=== PATIENT | male | born 1945 | race Caucasian/White ===

== ENCOUNTER 2023-12-07 11:32 | Inpatient (IN) | payer MEDICARE, OTHER ==
[~2023-12-07] VITALS: Ht 180.3 cm; Wt 85.4 kg
[2023-12-10] VITALS (15 sets, daily range): BP systolic 135–152; BP diastolic 54–71; PULSE 58–70; TEMP 97.4–98.2
[2023-12-10] MEDS ORDERED: Meclizine 25 MG TAB PO SCH (05:00)
[2023-12-10] MEDS ORDERED: LR 1,000 ML IV SCH ×2 (05:00→09:00)
[2023-12-10] MEDS ORDERED: Gabapentin 100 MG CAP PO SCH (06:30)
[2023-12-10] MEDS ORDERED: Celecoxib 200 MG CAP PO SCH (06:30)
[2023-12-10] MEDS ORDERED: Acetaminophen 500 MG TAB PO SCH ×2 (06:30→12:45)
[2023-12-10 06:33] LABS: HEMATOCRIT 42.3 % (42.0-52.0); HEMOGLOBIN 13.6 g/dl (13.5-18.0); MEAN CELL VOLUME 90 fl (80.0-100.0); MEAN CORPUSCULAR HEMOGLOBIN 29 pg (27-31); MEAN CORPUSCULAR HGB CONC 32 g/dl (33.0-37.0); MEAN PLATELET VOLUME 10.4 fl (7.4-10.4); PLATELET COUNT 157 K/mm3 (130-400); RED BLOOD COUNT 4.72 M/mm3 (4.20-5.60); REDCELL DISTRIBUTION WIDTH-CV 14.5 % (11.5-14.5)
[2023-12-10] MEDS ORDERED: fentaNYL 50 MCG/ML 2 ML VIAL ONE (06:34)
[2023-12-10] MEDS ORDERED: Lidocaine PF 2% (20 MG/ML) 5 ML VIAL ONE (06:34)
[2023-12-10] MEDS ORDERED: dexAMETHasone 10 MG/ML VIAL ONE (06:34)
[2023-12-10] MEDS ORDERED: Rocuronium 50 MG/5 ML Multi-Dose VIAL ONE ×2 (06:35→08:04)
[2023-12-10] MEDS ORDERED: Midazolam 2 MG/2 ML VIAL ONE (06:35)
[2023-12-10 06:48] LABS: CALCIUM 8.7 mg/dL (8.4-10.2); CREATININE, serum 1.47 mg/dL (0.72-1.25); POTASSIUM 4.4 mEq/L (3.5-4.5)
[2023-12-10] MEDS ORDERED: NORCO 325 MG-51 TAB PO (07:28)
[2023-12-10] MEDS ORDERED: Ondansetron 4 MG/2 ML VIAL IV PRN ×2 (07:30→08:15)
[2023-12-10] MEDS ORDERED: Naloxone 0.4 MG/ML VIAL IV PRN (07:30)
[2023-12-10] MEDS ORDERED: Morphine 4 MG/ML VIAL IV PRN (07:30)
[2023-12-10] MEDS ORDERED: oxyCODONE 5 MG TAB PO PRN (07:30)
[2023-12-10] MEDS ORDERED: ePHEDrine 50 MG/ML VIAL ONE (07:45)
[2023-12-10] MEDS ORDERED: Topical Skin Adhesive 1 EACH (1 ML) TOP ONE (07:48)
[2023-12-10] MEDS ORDERED: fentaNYL 50 MCG/ML 1 ML SYRINGE/VIAL [PACU/SDC ONLY] IV PRN (08:15)
[2023-12-10] MEDS ORDERED: HYDROmorphone 1 MG/1 ML SYRINGE [PACU/SDC ONLY] IV PRN (08:15)
[2023-12-10] MEDS ORDERED: hydrALAZINE 20 MG/ML 1 ML VIAL IV PRN (08:15)
[2023-12-10] MEDS ORDERED: Meperidine 50 MG/ML 1 ML VIAL IV PRN (08:15)
--- NOTE | 2023-12-10 08:18 | NUR ---
MEDICATION LIST IN COMPUTER NOT UPDATED BEFORE ACKNOWLEDGED BY PHYSICIAN. PAPER LIST PLACED ON CHART WITH MEDS, DOSES AND LAST TAKEN. NO HOME MEDICATIONS WERE TAKEN BY PATIENT TODAY.
[2023-12-10] MEDS ORDERED: LR 1,000 ML IV ONE (09:12)
--- NOTE | 2023-12-10 10:10 | NUR ---
Pt arrived form PACU. A&Ox4. Drowsy. VSS. S1S2. Clear lungs. ABD round, soft, non-tender with audible bowel sounds. Palpable pulses in all extremities. Minimal sensation in BLE and RUE. Movement in all extremities. Brizuela in place, clear, yellow urine. IV in L wrist with LR at 75cc/hr. Pt tolerating Ice chips. x7 lap sites WA with skin glue. Pt denies pain, n/v, headache. No further needs at this time. Family and patient oriented to room. Call light in reach and bed alarm on.
--- NOTE | 2023-12-10 10:45 | NUR ---
Pt staing discomfort across lower ABD. Pressure. Pt states not painful, tolerable. Rates 5/10. Denies need for pain med or warm blanket at this time.
[2023-12-10] MEDS ORDERED: Gabapentin 100 MG CAP PO ONE (11:24)
--- NOTE | 2023-12-10 12:48 | NUR ---
0555 Patient ambulatory to bay with steady gait, breathing even and unlabored. Pt is alert and oriented, accompanied by his and daughter. Consents reviewed and signed by the patient. IV established. Blood specimen obtained with IV start and taken to lab. LR infusion via dial a flow at KVO. Call light in reach. Warm blanket provided.
--- NOTE | 2023-12-10 16:46 | NUR ---
Pt ambulated to chair. WILY Medrano noticed blood spot on blanket. Upon assessment lower lap site by umbilicus was bleeding. Cleaned Pt and placed gauze bandage over lap site. Pt ambulated to chair with minimal assist. No further needs. Call light in reach and chair alarm on.
--- NOTE | 2023-12-10 20:35 | NUR ---
Patient assessed at this time, see shift assessment, A/O, with IV infusing well on left wrist LR infusing at 75cc/hr, with arias to dependent drainage, spoken to Dr. Chance and made him aware that patient requesting his blood sugar cheched and it was 336, received an order for moderate sliding scale and consult hospitalist, family at bedside, queries answered, denies further needs, call light and personal items within reach, will continue to monitor.
--- NOTE | 2023-12-10 20:57 | NUR ---
Informed Estela, the CHUCK BONER about the consult.
[2023-12-10] MEDS ORDERED: Insulin Lispro (HumaLOG) SQ SCH (21:00)
[2023-12-10] MEDS ORDERED: Glucagon 1 MG VIAL IM PRN (21:15)
[2023-12-10] MEDS ORDERED: Dextrose 50% Water 25 GM/50 ML SYRINGE IV PRN (21:15)
[2023-12-10] MEDS ORDERED: Dextrose (Glucose) 15 GM (4 x 3.75 GM) Chewable TABLET PACK PO PRN (21:15)
--- NOTE | 2023-12-10 23:30 | NUR ---
Estela, the STOPPER MAKER came in and see the patient.
[2023-12-11] VITALS: BP 149/51; PULSE 62; TEMP 97.5
[2023-12-11] MEDS ORDERED: Nebivolol 20 MG **** subs to Bisoprolol 20 MG PO SCH ×3 (00:15→09:00)
[2023-12-11] MEDS ORDERED: Atorvastatin 40 MG TAB PO SCH (00:15)
[2023-12-11] MEDS ORDERED: Insulin Glargine-ygfn (Lantus) SQ SCH (00:15)
[2023-12-11] MEDS ORDERED: Amiodarone 200 MG TAB PO SCH (00:15)
[2023-12-11] MEDS ORDERED: Bisoprolol 5 MG TAB PO SCH ×2 (00:15→01:15)
[2023-12-11 01:25] VITALS: BP_SYST 149
[2023-12-11 03:18] VITALS: BP 150/92; PULSE 58; TEMP 97.7
[2023-12-11 04:17] VITALS: BP_SYST 150
--- NOTE | 2023-12-11 04:43 | NUR ---
Called Estela, the SUPERVISOR QUALITY CONTROL and made her aware that patient's blood sugar is 214, received an order to treat the patient basing it off to the sliding scale.
[2023-12-11] MEDS ORDERED: Insulin Lispro (HumaLOG) SQ ONE (04:45)
--- NOTE | 2023-12-11 06:45 | NUR ---
Pt laying in bed. Denies needs at this time. Revied incision sites with Counter Professional RN. Call light in reach.
[2023-12-11 06:53] LABS: BASO % 0.2 % (0.0-2.0); EOS % 0.1 % (0.0-4.0); GRAN # 15.5 K/mm3 (1.4-6.5); GRAN % 84.4 % (42.2-75.2); HEMATOCRIT 38.7 % (42.0-52.0); HEMOGLOBIN 12.7 g/dl (13.5-18.0); LYMPH # 1.6 K/mm3 (1.2-3.4); LYMPH % 8.9 % (20.0-51.0); MEAN CELL VOLUME 90 fl (80.0-100.0); MEAN CORPUSCULAR HEMOGLOBIN 29 pg (27-31); MEAN CORPUSCULAR HGB CONC 33 g/dl (33.0-37.0); MEAN PLATELET VOLUME 11.2 fl (7.4-10.4); MONO # 1.1 K/mm3 (0.1-0.6); MONO % 5.9 % (1.7-9.3); PLATELET COUNT 160 K/mm3 (130-400); RED BLOOD COUNT 4.32 M/mm3 (4.20-5.60); REDCELL DISTRIBUTION WIDTH-CV 14.3 % (11.5-14.5)
[2023-12-11 07:01] LABS: CALCIUM 8.8 mg/dL (8.4-10.2); CREATININE, serum 2.63 mg/dL (0.72-1.25); POTASSIUM 4.9 mEq/L (3.5-4.5)
[2023-12-11 07:26] VITALS: BP 137/90; PULSE 63; TEMP 98.3
--- NOTE | 2023-12-11 08:12 | NUR ---
Pt sitting up in bed. Finished with breakfast. A&Ox4. VSS. S1S2. Clear lungs on RA. ABD is round, osft, non-tender with audible bowel sounds. Palpable pulses in all extremities with 4/5 strength. Pt denies pain, n/v, headache, dizziness. x7 lap sites WA. 6 - open to air, 7th with gauze bandage - CDI. Administered AM meds and answered Pt questions. No further needs. Call light in reach.
[2023-12-11] MEDS ORDERED: Empagliflozin 10 MG TAB PO SCH (09:00)
[2023-12-11] MEDS ORDERED: Spironolactone 12.5 MG TAB PO SCH (09:00)
[2023-12-11] MEDS ORDERED: Furosemide 40 MG TAB PO SCH (09:00)
[2023-12-11 09:27] VITALS: BP_SYST 137
--- NOTE | 2023-12-11 10:00 | NUR ---
Pt ambulated in hallway about 200 feet. Pt utilized gait belt and walker with standby assist for IV pole. Pt sitting up in chair with family at bedside. Call light in reach.
--- NOTE | 2023-12-11 12:27 | NUR ---
Educated Pt and family on D/C instructions and information. Answered Pt questions. D/C'ed Pt IV from L forearm. Pressure bandage applied. No further needs. Pt transported to vehicle via by WILY Yu.
--- NOTE | 2023-12-11 12:54 | NUR ---
Data: Patient accepted Vocational Rehab Consultant visit offered during Vocational Rehab Consultant rounds. Patient hopes to discharge today. and adult Daughter were visiting. All were waiting for the Doctor to visit. Assessment: Patient hopes to discharge today. Plan of Care: Vocational Rehab Consultant provided prayer. Patient's family thanked Vocational Rehab Consultant for the prayer. Chaplains will remain available as needed/requested while Patient is admitted to this hospital.
== END 2023-12-11 12:55 | disposition home or self-care (01) | DRG 657 ==
LOC: INPTSU 12-10 05:34 → SURG 12-10 07:30
PROVIDERS: ADMIT Urology
PROC: 8E0W4CZ Robotic Assisted Procedure of Trunk Region, Percutaneous Endoscopic Approach (ICD-10-PCS; 2023-12-10)
PROC: 0TT04ZZ Resection of Right Kidney, Percutaneous Endoscopic Approach (ICD-10-PCS; principal; 2023-12-10 07:30)
DX: C64.1 Malignant neoplasm of right kidney, except renal pelvis (principal); I13.0 Hypertensive heart and chronic kidney disease with heart failure and stage 1 through stage 4 chronic kidney disease, or unspecified chronic kidney disease; I50.22 Chronic systolic (congestive) heart failure; I42.8 Other cardiomyopathies; N13.8 Other obstructive and reflux uropathy; I47.29 Other ventricular tachycardia; E11.22 Type 2 diabetes mellitus with diabetic chronic kidney disease; N18.32 Chronic kidney disease, stage 3b; E78.5 Hyperlipidemia, unspecified; I25.10 Atherosclerotic heart disease of native coronary artery without angina pectoris; G47.33 Obstructive sleep apnea (adult) (pediatric); E11.40 Type 2 diabetes mellitus with diabetic neuropathy, unspecified; D64.9 Anemia, unspecified; N28.9 Disorder of kidney and ureter, unspecified; I34.0 Nonrheumatic mitral (valve) insufficiency; N40.1 Benign prostatic hyperplasia with lower urinary tract symptoms; E03.9 Hypothyroidism, unspecified; Z79.82 Long term (current) use of aspirin; Z79.899 Other long term (current) drug therapy; Z79.890 Hormone replacement therapy; Z79.4 Long term (current) use of insulin; Z88.0 Allergy status to penicillin
CPT/HCPCS: A4314; A9270; A9284; J0690; J1100; J1815; J2250; J2704; J2795; J3010; J7120

== ENCOUNTER 2024-02-18 12:59 | Day surgery (SDC) | payer MEDICARE, OTHER ==
[2024-02-18] VITALS (10 sets, daily range): BP systolic 126–153; BP diastolic 51–92; PULSE 55–83; TEMP 97–98.2
[~2024-02-18] VITALS: Ht 180.3 cm; Wt 84.7 kg
[~2024-02-18 12:59] MED LIST: LR 1,000 ML IV SCH; NORCO 325 MG-51 TAB PO
[2024-02-18 14:03] LABS: BASO % 0.2 % (0.0-2.0); EOS # 0.2 K/mm3 (0.0-0.7); EOS % 1.9 % (0.0-4.0); GRAN # 7.5 K/mm3 (1.4-6.5); GRAN % 59.8 % (42.2-75.2); HEMOGLOBIN 11.2 g/dl (13.5-18.0); LYMPH # 3.7 K/mm3 (1.2-3.4); LYMPH % 29.9 % (20.0-51.0); MEAN CELL VOLUME 89 fl (80.0-100.0); MEAN CORPUSCULAR HEMOGLOBIN 29 pg (27-31); MEAN CORPUSCULAR HGB CONC 33 g/dl (33.0-37.0); MONO % 7.9 % (1.7-9.3); PLATELET COUNT 146 K/mm3 (130-400); RED BLOOD COUNT 3.87 M/mm3 (4.20-5.60); REDCELL DISTRIBUTION WIDTH-CV 14.8 % (11.5-14.5)
[2024-02-18 14:05] LABS: HEMATOCRIT 34.5 % (42.0-52.0)
[2024-02-18 14:16] LABS: CREATININE, serum 2.37 mg/dL (0.72-1.25); POTASSIUM 4.7 mEq/L (3.5-4.5)
[2024-02-18] MEDS ORDERED: JARDIANCE10 PO (15:15)
[2024-02-18] MEDS ORDERED: ASPIRIN 81M81 MG/TA2 PO (15:16)
[2024-02-18] MEDS ORDERED: LIPITOR 40MG TA40 MG PO (15:16)
[2024-02-18] MEDS ORDERED: BYSTOLIC20 MG PO (15:17)
[2024-02-18] MEDS ORDERED: ENTRESTO 97 MG1 EACH PO (15:17)
[2024-02-18] MEDS ORDERED: PACERONE200 MG PO (15:18)
[2024-02-18] MEDS ORDERED: XULTOPHY 100 UNI3 ML SQ (15:20)
[2024-02-18] MEDS ORDERED: HUMALOG TE100 UNIT/1 SQ (15:25)
[2024-02-18] MEDS ORDERED: Morphine 2 MG/1 ML VIAL [PACU/SDC ONLY] IV PRN (15:30)
[2024-02-18] MEDS ORDERED: Meperidine 50 MG/ML 1 ML VIAL IV PRN (15:30)
[2024-02-18] MEDS ORDERED: Ondansetron 4 MG/2 ML VIAL IV PRN ×4 (15:30→22:00)
[2024-02-18] MEDS ORDERED: HYDROmorphone 1 MG/1 ML SYRINGE [PACU/SDC ONLY] IV PRN (15:30)
[2024-02-18] MEDS ORDERED: fentaNYL 50 MCG/ML 2 ML VIAL ONE (15:38)
[2024-02-18] MEDS ORDERED: Midazolam 2 MG/2 ML VIAL ONE (15:38)
[2024-02-18] MEDS ORDERED: NS 10 ML IV ONE (15:39)
[2024-02-18] MEDS ORDERED: Lidocaine PF 2% (20 MG/ML) 5 ML VIAL ONE (15:41)
[2024-02-18] MEDS ORDERED: SYNTHROID0.1 MG/TAB PO (15:43)
[2024-02-18] MEDS ORDERED: NS Irrig Soln 3000 ML SOLN IR PRN ×3 (16:30→22:00)
[2024-02-18] MEDS ORDERED: Morphine 4 MG/ML VIAL IV PRN ×3 (16:30→22:00)
[2024-02-18] MEDS ORDERED: Acetaminophen 325 MG TAB PO PRN ×3 (16:30→21:45)
[2024-02-18] MEDS ORDERED: Hyoscyamine 0.125 MG Sublingual TAB SL PRN ×3 (16:30→22:00)
[2024-02-18] MEDS ORDERED: Magnes Hydrox (MOM) 80 MG/ML 30 ML CUP PO PRN ×3 (16:30→22:00)
[2024-02-18] MEDS ORDERED: 1/2 NS & 20 mEq KCl 1,000 ML IV SCH ×2 (16:30→18:45)
[2024-02-18] MEDS ORDERED: Lidocaine 2% (20 MG/ML) 20 ML UROJET UR ONE (16:58)
--- NOTE | 2024-02-18 18:38 | NUR ---
PT TO ROOM 329 PER BED WITH REPORT FROM [facility] PACU @1800. VSS, CBI CREDIT [id number]. RUNNING PINK TO BAG. IV TO LFA. FAMILY AT BEDSIDE. PT IS A/O X4, ADA DIET WITH BG OF 106 ON TRANSFER.
[2024-02-18] MEDS ORDERED: Nystatin 100,000 Units/GM Ointment 15 GM TUBE TP SCH (21:00)
[2024-02-18] MEDS ORDERED: Amiodarone 200 MG TAB PO SCH ×3 (21:00→22:16)
[2024-02-18] MEDS ORDERED: Atorvastatin 40 MG TAB PO SCH ×2 (21:00→22:00)
[2024-02-18] MEDS ORDERED: Docusate Sodium 100 MG CAP PO SCH (21:00)
[2024-02-18] MEDS ORDERED: Bisoprolol 5 MG TAB PO SCH ×2 (21:00→22:00)
--- NOTE | 2024-02-18 21:40 | NUR ---
Dr. Chance contacted to clarify holding or continuing home meds. Notified he wants to continue all home meds except to hold his aspirin and entersto. Also recieved orders to consult hospitalist and check BMP in AM.
[2024-02-18] MEDS ORDERED: PACERONE100 MG PO (22:15)
[2024-02-18] MEDS ORDERED: Dextrose (Glucose) 15 GM (4 x 3.75 GM) Chewable TABLET PACK PO PRN (22:45)
[2024-02-18] MEDS ORDERED: Dextrose 50% Water 25 GM/50 ML SYRINGE IV PRN (22:45)
[2024-02-18] MEDS ORDERED: Glucagon 1 MG VIAL IM PRN (22:45)
--- NOTE | 2024-02-18 22:45 | NUR ---
Patient resting in bed. Rates his pain at 7/10, prn tylenol given. Needs met. CBI running without complications, urine granger red. Assessment complete. IV in left AC flushes easily without complications. Call light and personal items in reach. Bed in low position and bed alarm on.
[2024-02-19] VITALS (13 sets, daily range): BP systolic 131–151; BP diastolic 60–78; PULSE 60–69; TEMP 98–99.1
--- NOTE | 2024-02-19 01:56 | NUR ---
PT DECLINED TO WEAR HOSPITAL CPAP. PT ON 1L NC
--- NOTE | 2024-02-19 06:00 | NUR ---
Patient resting in bed. Denies any pain or needs at this time. CBI in place with urine draining granger red. No events overnight. Call light and personal items in reach. Bed in low position and bed alarm on.
[2024-02-19 06:48] LABS: CALCIUM 8.1 mg/dL (8.4-10.2); CREATININE, serum 2.24 mg/dL (0.72-1.25); POTASSIUM 4.6 mEq/L (3.5-4.5)
[2024-02-19] MEDS ORDERED: Insulin Lispro (HumaLOG) SQ SCH (08:00)
--- NOTE | 2024-02-19 08:15 | NUR ---
pt a&ox4 sitting up in bed with breakfast, family at bedside. pt denies pain. vss. meds given and assessment complete. CBI clamped by Dr Chance. blood glucose WNL, no insulin required. fluids infusing into right forearm IV at 75ml/hr. pt denies needs at this time. call light in reach. fall precautions in place.
[2024-02-19] MEDS ORDERED: Empagliflozin 10 MG TAB PO SCH ×2 (09:00)
[2024-02-19] MEDS ORDERED: Nystatin 100,000 Units/GM Ointment 15 GM TUBE TP SCH (09:00)
[2024-02-19] MEDS ORDERED: Nebivolol 20 MG **** subs to Bisoprolol 20 MG PO SCH (09:00)
--- NOTE | 2024-02-19 09:36 | NUR ---
arias discontinued without difficulty. instructed pt on 6 cup routine, pt and understands. pt denies pain.
--- NOTE | 2024-02-19 10:03 | NUR ---
SW met with patient to complete intake and discuss discharge planning, patient's ([phone]) was present and permitted by patient to remain in room during this intake process. Patient reports that he lives with in [facility], his PCP is Dr. Suh with [facility] and his pharmacy of choice is [facility]. Patient communicated that he is independent with ADLs and current DMEs include: insulin pen, CPAP, glucose meter- no additional DMEs reported at this time. No DPOA on file, patient was provided information on documenation available with hospital, both patient and decline. Informed SW that they are working on completing with legal. Discharge Plan: home with
--- NOTE | 2024-02-19 13:16 | NUR ---
Data: Patient, , and Daughter accepted spiritual care visit offered during Orthotist/Prosthetist rounds. Life review. Assessment: Patient and desired prayer; are grateful for the care and healing that has taken place. Plan of Care: Orthotist/Prosthetist provided supportive listening and prayer. Patient and family thanked Orthotist/Prosthetist for the visit. Chaplains will remain available as needed/requested while Patient is admitted to this hospital.
--- NOTE | 2024-02-19 17:18 | NUR ---
pt tolerated 6 cup, pt still experiencing dark blood in urine but no clots are present. pt denies difficulty emptying and denies pain as well.
--- NOTE | 2024-02-19 19:20 | NUR ---
Patient resting in chair with and daughter at bedside. Denies any pain or needs at this time. Assessment complete. IV in right forearm flushes easily without complications. Patient is voiding dark red urine without complaints of pain or difficulity. Urine does not have any clots or sediment. Call light and personal items in reach. Bed in low position.
--- NOTE | 2024-02-19 22:00 | NUR ---
Patient ambulated in hallways without complications. Steady on feet.
--- NOTE | 2024-02-19 23:30 | NUR ---
Spoke with Hospitalist Estela about patients ordered IVF however was told patient was INT and was not connected to any fluids. Patient is eating and drinking as normal. Recieved orders to DC fluids from [facility].
[2024-02-20] VITALS (7 sets, daily range): BP systolic 131–147; BP diastolic 74–82; PULSE 64–67; TEMP 98.2–98.6
--- NOTE | 2024-02-20 05:50 | NUR ---
Patient resting in bed. No changes over night. Patient states he's ready to go home and would like to shower later this morning. Shower items provided. Instructed patient to call when ready to get in the shower so IV site can be wrapped. Patient verbalized understanding.
--- NOTE | 2024-02-20 07:23 | NUR ---
Bedside report received from KIRK Perera. Pt awake in bed with no complaints. Call light within reach.
--- NOTE | 2024-02-20 08:01 | NUR ---
Pt awake in bed eating breakfast. Shift assessment completed. Pt independently showered with no complications. 200mL of red-tinged urine emptied from urinal. Pt denies pain at this time rating 0/10. Spouse at bedside. INT to Rt forearm patent with no swelling, redness, or drainage. Pt has no request at this time. Call light within reach.
--- NOTE | 2024-02-20 10:20 | NUR ---
SW was informed by rail car repairer that pt is a likely discharge. No needs. Discharge Plan: home
--- NOTE | 2024-02-20 13:26 | NUR ---
Discharge instructions provided to pt and pt spouse. Pt verbalized understanding of discharge paperwork. INT to Rt forearm discontinued with tip intact, pt tolerated well with no complaints. Pt is leaving facility with spouse back to home. All questions answered accordingly.
== END 2024-02-20 13:38 | disposition home or self-care (01) ==
LOC: SDCO 12:59 → SURG 18:00 → SDCO 02-20 13:38
PROVIDERS: Urology
DX: N40.1 Benign prostatic hyperplasia with lower urinary tract symptoms (principal); N13.9 Obstructive and reflux uropathy, unspecified; R33.8 Other retention of urine; R39.12 Poor urinary stream; R35.1 Nocturia; R39.14 Feeling of incomplete bladder emptying; N28.9 Disorder of kidney and ureter, unspecified; E11.40 Type 2 diabetes mellitus with diabetic neuropathy, unspecified; E11.22 Type 2 diabetes mellitus with diabetic chronic kidney disease; I13.0 Hypertensive heart and chronic kidney disease with heart failure and stage 1 through stage 4 chronic kidney disease, or unspecified chronic kidney disease; N18.4 Chronic kidney disease, stage 4 (severe); I50.22 Chronic systolic (congestive) heart failure; I42.8 Other cardiomyopathies; C64.1 Malignant neoplasm of right kidney, except renal pelvis; I47.10 Supraventricular tachycardia, unspecified; E78.5 Hyperlipidemia, unspecified; G47.33 Obstructive sleep apnea (adult) (pediatric); E03.9 Hypothyroidism, unspecified; Z79.890 Hormone replacement therapy; Z79.84 Long term (current) use of oral hypoglycemic drugs; Z79.4 Long term (current) use of insulin; Z79.899 Other long term (current) drug therapy; Z79.82 Long term (current) use of aspirin; Z95.810 Presence of automatic (implantable) cardiac defibrillator
CPT/HCPCS: OP; A9270; J0665; J0690; J2250; J2704; J3010; J3480; J7120